=== PATIENT | female | born 1995 | race Caucasian/White ===

== ENCOUNTER 2017-05-08 10:52 | Outpatient (CLI) | payer OTHER ==
--- NOTE | 2017-05-08 11:50 | CT ---
HEAD CT WITHOUT CONTRAST: Date: 05-08-17 Comparison: None. History: Head pressure. Prior concussion. History of Lyme disease. Technique: Serial axial CT imaging at 5 mm intervals from vertex through skull base without contrast . FINDINGS: The imaged paranasal sinuses/mastoid air cells are well aerated. There is no displaced calvarial fra cture. There is no intracranial hemorrhage, midline shift, mass effect or ventricular enlargement. 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 IMPRESSION: No intracranial hemorrhage or displaced calvarial fracture. POS: [facility]
== END 2017-05-08 10:53 | disposition home or self-care (01) ==
LOC: CT 10:52
PROVIDERS: ATTEND Family Medicine
DX: S06.0X0A Concussion without loss of consciousness, initial encounter (principal)
CPT/HCPCS: 70450